=== PATIENT | female | born 1950 | race Caucasian/White ===

== ENCOUNTER 2017-07-13 07:15 | Day surgery (SDC) | payer OTHER, MEDICARE ==
[2017-07-13] MEDS ORDERED: PROPOFOL 20 ML ONE ×2 (07:23)
[2017-07-13] MEDS ORDERED: LIDOCAINE HCL/PF 2% SDV 5ML VIAL ONE (07:24)
[2017-07-13 07:48] VITALS: BMI 18.4
[2017-07-13 09:59] VITALS: BP 103/58; PULSE 74; TEMP 98
== END 2017-07-13 10:00 | disposition home or self-care (01) ==
LOC: FASU-ENDO 07:15
PROVIDERS: ATTEND Internal Medicine Gastroenterology
PROC: 0DJD8ZZ Inspection of Lower Intestinal Tract, Via Natural or Artificial Opening Endoscopic (ICD-10-PCS; principal; 2017-07-13 08:52)
DX: Z12.11 Encounter for screening for malignant neoplasm of colon (principal)